=== PATIENT | male | born 1960 | race Caucasian/White ===

== ENCOUNTER 2017-08-05 19:18 | Emergency (ER) | payer SELFPAY ==
[2017-08-05 19:44] VITALS: BP 191/115
--- NOTE | 2017-08-05 20:22 | UC ---
Hypertension HPI - HPI Summary HPI Summary: 56 yo male has been out of three of his four antihpertensive meds for 3-4 weeks Awoke today with his eyeball pulsating and mild dyspnea States these are his typical symptoms when his pressure is up States physicians always marvel at the fact that he has not had a stroke yet no CP no PAULINO - History of Current Complaint Chief Complaint: UCGeneralIllness Stated Complaint: ELEVATED BLOOD PRESSURE Time Seen by Provider: 08/05/17 19:58 Hx Obtained From: Patient Onset/Duration: Sudden Onset, Lasting Hours Timing: Constant Aggravating Factor(s): Nothing Associated Signs And Symptoms: Positive: SOB - mild. Negative: Chest Pain, Vision Changes, Anxiety, Recent Stress, Headaches, Numbness, Tingling, Weakness , Dizziness, Swelling Current Medications: ACEI - out, Ca Channel Moris - out, Diuretic - out, Other - clonidine - Risk Factors Cardiac Risk Factors: Hypertension - Allergies/Home Medications Allergies/Adverse Reactions: Allergies Allergy/AdvReac Type Severity Reaction Status Date / Time No Known Allergies Allergy Verified 08/05/17 19:44 Home Medications: Home Medications Lisinopril 40 mg PO DAILY 08/05/17 [History Confirmed 08/05/17] Potassium Chlor TAB* [Klor Con ER TAB*] 10 meq PO BID 08/05/17 [History Confirmed 08/05/17] Triamterene/HCTZ 37.5-25 MG* [Dyazide CAP*] 1 cap PO DAILY 08/05/17 [History Confirmed 08/05/17] amLODIPine TAB* [Norvasc 5 mg TAB*] 10 mg PO DAILY 08/05/17 [History Confirmed 08/05/17] PMH/Surg Hx/FS Hx/Imm Hx Previously Healthy: Yes Cardiovascular History: Hypertension - Surgical History Surgical History: Yes Surgery Procedure, Year, and Place: tonsils - Family History Known Family History: Positive: Hypertension, Other - cva - Social History Alcohol Use: Occasionally Substance Use Type: None Smoking Status (MU): Never Smoked Tobacco Review of Systems Constitutional: Negative Skin: Negative Eyes: Negative ENT: Negative Respiratory: Shortness Of Breath - mild Cardiovascular: Negative Gastrointestinal: Negative Genitourinary: Negative Motor: Negative Neurovascular: Negative Musculoskeletal: Negative Neurological: Negative Psychological: Negative Is Patient Immunocompromised?: No All Other Systems Reviewed And Are Negative: Yes Physical Exam Triage Information Reviewed: Yes Appearance: Well-Appearing, No Pain Distress, Well-Nourished, Obese - BMI 50 Vital Signs: Initial Vital Signs Temp 97.4 F 08/05/17 19:36 Pulse 79 08/05/17 19:36 Resp 16 08/05/17 19:36 BP 191/115 08/05/17 19:36 Pulse Ox 98 08/05/17 19:36 Vital Signs Reviewed: Yes Eyes: Positive: Conjunctiva Clear ENT: Negative: Nasal congestion, Nasal drainage, Trismus, Muffled voice Neck: Positive: Supple, Nontender Respiratory: Positive: Lungs clear, Normal breath sounds, No respiratory distress Cardiovascular: Positive: RRR, No Murmur Musculoskeletal: Positive: Edema @ - (+) pre tibial Neurological: Positive: Alert Psychological Exam: Normal Skin Exam: Normal Diagnostics - EKG Cardiac Rate: NL Cardiac Rhythm: Sinus: Normal Ectopy: PVCs ST Segment: Non-Specific Hypertension Course/Dx - Differential Dx/Diagnosis Provider Diagnoses: hypertension. out of meds Discharge - Sign-Out/Discharge Documenting (check all that apply): Discharge - Discharge Plan Condition: Stable Disposition: HOME Prescriptions: Amlodipine Besylate [Norvasc 5 mg tab] 10 mg PO DAILY #60 tab cloNIDine HCl [Catapres 0.2 MG TAB] 0.2 mg PO BID #60 tab Lisinopril 40 mg PO DAILY #30 tablet Triamterene/HCTZ 37.5-25 MG* [Dyazide CAP*] 1 cap PO DAILY #30 cap Patient Education Materials: Hypertension (ED) Forms: *Work Release Referrals: Natalia Pacheco PA [Physician Store [employer] Dem[employer]] - 1 Day Additional Instructions: see your provider tomorrow - Billing Disposition and Condition Condition: STABLE Disposition: HOME
== END 2017-08-05 20:29 | disposition home or self-care (01) ==
LOC: UCCORT 19:18
DX: I10 Essential (primary) hypertension (principal)
CPT/HCPCS: 93005; 99202; G0463